=== PATIENT | male | born 1970 | race Caucasian/White ===

== ENCOUNTER → 2024-01-19 | Outpatient (CLI) | payer OTHER ==
--- NOTE | 2024-01-19 14:19 | XR ---
EXAMINATION TYPE: XR hand complete LT DATE OF EXAM: 01/19/2024 2:00 PM CLINICAL INDICATION: Male, 53 years old with history of S61.012A LACERATION L THUMB; PHH COMPARISON: None TECHNIQUE: XR hand complete LT Frontal, lateral and oblique views were obtained. FINDINGS: Normal alignment of the visualized joints. No acute osseous pathology is identified. No e vidence of soft tissue swelling. No significant degeneration no radiopaque foreign body. Laceration n ot well appreciated. IMPRESSION: 1. No acute osseous pathology. 2. No radiopaque foreign body [facility], , 01/19/2024 2:17 PM
== END | disposition home or self-care (01) ==
LOC: RADXRMAIN 13:41
PROVIDERS: ATTEND Emergency Medicine